=== PATIENT | male | born 1955 | race Caucasian/White ===

== ENCOUNTER 2019-01-19 15:11 | Emergency (ER) | payer OTHER ==
[~2019-01-19] VITALS: Ht 185.4 cm; Wt 99.8 kg
[~2019-01-19 15:11] MED LIST: AMLO10TA PO; ASPI81EC97 PO; LISI30TA6 PO; METF1000 PO; NOV7030 SUBQ; OMEP40EC1 PO; SIMV20TA1 PO
--- NOTE | 2019-01-19 15:25 | NUR ---
Patient to bed 12. RN evaluating patient at bedside.
[2019-01-19 15:34] VITALS: BP 128/59
--- NOTE | 2019-01-19 15:35 | NUR ---
PT C/O OF DIARRHEA X 3 DYAS, PAIN AT LOWEER ABDOMEN . STATES TO HAVE PAIN WHILE PEEING. HX OF DM AND HTN. PT STATES TO HAVE BEING NON-COMPLIANCE WITYH HIS DIABETIC MEDS. PT DRINKING PEDILYTE, HELPING HIM. WILL CONTTINUE TO MONITOR PT.
--- NOTE | 2019-01-19 15:52 | NUR ---
BS 219 AT THIS TIME.
[2019-01-19] MEDS ORDERED: NACL 0.9% 500 ML IV ONE (16:00)
[2019-01-19 16:39] LABS: BASOPHILS % (AUTO) 0.2 % (0.0-2.0); EOSINOPHILS % (AUTO) 0.1 % (0.0-4.0); HEMATOCRIT 35.5 % (36-52); LYMPHOCYTES # (AUTO) 1.7 K/uL (2.0-11.5); LYMPHOCYTES % (AUTO) 12.4 % (20.5-51.1); MEAN CORPUSCULAR HEMOGLOBIN 30 pg (27-31); MEAN CORPUSCULAR HGB CONC 34 g/dL (33-37); MEAN CORPUSCULAR VOLUME 87.8 fL (80-94); MONOCYTES % (AUTO) 7.1 % (1.7-9.3); NEUTROPHILS # (AUTO) 10.8 K/uL (1.8-7.7); NEUTROPHILS % (AUTO) 80.2 % (42.2-75.2); PLATELET COUNT (AUTO) 250 K/uL (140-450); RED BLOOD CELL COUNT(AUTO) 4.04 MIL/uL (4.20-6.10); RED CELL DISTRIBUTION WIDTH 13.6 % (11.6-13.7); WHITE BLOOD COUNT (AUTO) 13.4 K/uL (4.8-10.8)
[2019-01-19 16:44] LABS: ANION GAP 10.6 (8-16); CARBON DIOXIDE 26.7 mmol/L (21-32); CREATININE 1.1 mg/dL (0.7-1.3); POTASSIUM 3.3 mmol/L (3.5-5.1)
[2019-01-19 16:50] LABS: ALBUMIN 2.8 g/dL (3.4-5.0); TOTAL BILIRUBIN 0.7 mg/dL (0.0-1.0)
--- NOTE | 2019-01-19 17:25 | NUR ---
Patient discharged with v/s stable. Written and verbal after care instructions given and explained. Patient alert, oriented and verbalized understanding of instructions. Ambulatory with steady gait. All questions addressed prior to discharge. ID band removed. Patient advised to follow up with PMD. Rx of IMODIUM given. Patient educated on indication of medication including possible reaction and side effects. Opportunity to ask questions provided and answered.
[2019-01-19 17:29] VITALS: BP 128/59
== END 2019-01-19 17:25 | disposition home or self-care (01) ==
LOC: MED 15:11
DX: R19.7 Diarrhea, unspecified (principal); E11.9 Type 2 diabetes mellitus without complications; K21.9 Gastro-esophageal reflux disease without esophagitis; I10 Essential (primary) hypertension; Z79.4 Long term (current) use of insulin; Z79.82 Long term (current) use of aspirin; Z79.899 Other long term (current) drug therapy
CPT/HCPCS: 36415; 74022; 80053; 82948; 85025; 96360; 99284; J7030

== ENCOUNTER 2019-01-22 19:11 | Emergency (ER) | payer OTHER ==
[~2019-01-22] VITALS: Ht 185.4 cm; Wt 99.8 kg
[2019-01-22 19:24] VITALS: BP 127/67
--- NOTE | 2019-01-22 19:30 | NUR ---
PT AMBULATORY TO BED
--- NOTE | 2019-01-22 19:50 | NUR ---
PT PRESENTS TO THE ED WITH C/O INTERMITTENT DIZZYNES, NUMBNESS OF THE TONGUE AND BLURRY VISION. PER PATIENT HIS BLOOD SUGAR PRIOR TO COMMING TO THE ED WAS 60. PT REPORTS DRINKING JUICES. BLOOD SUGAR RECHECKED IN ER TRIAGE, 151. PT AOX4. NO S/S OF DISTRESS. VSS WITHIN NORMAL LIMITS. BED LOWERED WITH SIDE RAILS UP
[2019-01-22 20:37] VITALS: BP 135/68
== END 2019-01-22 20:32 | disposition home or self-care (01) ==
LOC: MED 19:11
DX: E11.649 Type 2 diabetes mellitus with hypoglycemia without coma (principal); K21.9 Gastro-esophageal reflux disease without esophagitis; I10 Essential (primary) hypertension; Z79.4 Long term (current) use of insulin; Z79.82 Long term (current) use of aspirin; Z79.899 Other long term (current) drug therapy
CPT/HCPCS: 82948; 99283

== ENCOUNTER 2019-08-04 00:22 | Emergency (ER) | payer OTHER ==
[~2019-08-04] VITALS: Ht 185.4 cm; Wt 99.8 kg
[~2019-08-04 00:22] MED LIST changes: -OMEP40EC1 PO; +OMEP40EC24 PO
[2019-08-04 00:23] VITALS: BP 190/76
--- NOTE | 2019-08-04 00:23 | NUR ---
TO BED # 02 AMBULATORY
--- NOTE | 2019-08-04 00:35 | NUR ---
63 YO M BIB SELF WITH [facility] PRESENTS TO ED AND REPORTS FLU S/SX AND NON PRODUCTIVE COUGH X 1 WEEK. REPORTS NASAL CONGESTION AND DIFFICULTY SWALLOWING. PT STATES "I CAN'T BREATHE THROUGH MY NOSE". DENIES FEVER, NVD. PT REPORTS PLEURITIC STOMACH PAIN AND BACK PAIN WHILE COUGHING. PMH-- DM, HTN RX-- METFORMIN, AMLODIPINE, SIMVASTATIN, LISINOPRIL, FUROSEMIDE
--- NOTE | 2019-08-04 01:21 | NUR ---
DR. MARY AVILEZ AT BEDSIDE.
--- NOTE | 2019-08-04 01:48 | NUR ---
Patient discharged with v/s stable. Written and verbal after care instructions given and explained. Patient alert, oriented and verbalized understanding of instructions. Ambulatory with steady gait. All questions addressed prior to discharge. ID band removed. Patient advised to follow up with PMD. Rx of Tamiflu, Motrin and Promethazine cough syrup given. Patient educated on indication of medication including possible reaction and side effects. Opportunity to ask questions provided and answered.
[2019-08-04 01:55] VITALS: BP 190/76
== END 2019-08-04 01:55 | disposition home or self-care (01) ==
LOC: MED 00:22
DX: J10.1 Influenza due to other identified influenza virus with other respiratory manifestations (principal); E11.9 Type 2 diabetes mellitus without complications; K21.9 Gastro-esophageal reflux disease without esophagitis; I10 Essential (primary) hypertension; Z79.4 Long term (current) use of insulin; Z79.899 Other long term (current) drug therapy
CPT/HCPCS: 87804; 99283

== ENCOUNTER 2019-08-12 17:21 | Emergency (ER) | payer OTHER, MEDICAID ==
[~2019-08-12] VITALS: Ht 185.4 cm; Wt 99.8 kg
[2019-08-12 17:43] VITALS: BP 121/58
--- NOTE | 2019-08-12 18:02 | NUR ---
63 Y/O C/C COUGH MORE THAN 15 DAYS. PER PT HAS COME TO HOSPITAL FOR CHECK UP AND MEDICATION GIVEN. PT FINISHED MEDICATION AND CONTINUES WITH COUGH. PT NKA. HX DM,HTN. RX INSULIN,METFORMIN,LISINOPRIL,AMLODOPINE. DENIES N/V/D. PT TAKEN FLU SHOT/FAMILY SICK AT HOME. PT SITTING IN CHAIR C.
--- NOTE | 2019-08-12 18:10 | NUR ---
FLU SWAP COLLECTED
[2019-08-12 19:14] VITALS: BP 120/60
--- NOTE | 2019-08-12 19:14 | NUR ---
Patient discharged with v/s stable. Written and verbal after care instructions given and explained. Patient alert, oriented and verbalized understanding of instructions. Ambulatory with steady gait. All questions addressed prior to discharge. ID band removed. Patient advised to follow up with PMD. Rx of PREDNISONE,MOTRIN given. Patient educated on indication of medication including possible reaction and side effects. Opportunity to ask questions provided and answered.
== END 2019-08-12 19:14 | disposition home or self-care (01) ==
LOC: MED 17:21
DX: R05 Cough (principal); E11.9 Type 2 diabetes mellitus without complications; K21.9 Gastro-esophageal reflux disease without esophagitis; I10 Essential (primary) hypertension; Z79.899 Other long term (current) drug therapy; Z79.4 Long term (current) use of insulin
CPT/HCPCS: 71045; 99283

== ENCOUNTER 2020-01-15 18:58 | Emergency (ER) | payer OTHER, MEDICAID ==
[~2020-01-15] VITALS: Ht 182.9 cm; Wt 107.0 kg
[2020-01-15 19:02] VITALS: BP 162/72
--- NOTE | 2020-01-15 19:06 | NUR ---
PT AMBULATED TO LOBBY WITH STEADY GAIT
--- NOTE | 2020-01-15 19:21 | NUR ---
PT TAKEN TO XRAY VIA W/C.
--- NOTE | 2020-01-15 19:34 | NUR ---
PT RETURNED FROM XRAY AND TAKEN TO BED 4. PT AMBULATED TO BED WITH STEADY GAIT.
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
[2020-01-15] MEDS ORDERED: KETOROLAC 60 MG/2 ML VIAL IM ONE (20:25)
--- NOTE | 2020-01-15 20:55 | NUR ---
PATIENT SEEN AND ASSESS FOR INCENTIVE SPIROMETRY. PREDICTED VOLUME 2800ml AND PATIENT COMPLETED INSPIRED AVERAGE VOLUME OF 2500ml OUT OF 10 BREATHS. EDUCATION GIVEN TO PATIENT ON HOW TO USE INCENTIVE SPIROMETRY.
[2020-01-15 21:20] VITALS: BP 162/72
--- NOTE | 2020-01-15 21:20 | NUR ---
Patient discharged with v/s stable. Written and verbal after care instructions given and explained. Patient alert, oriented and verbalized understanding of instructions. Ambulatory with steady gait. All questions addressed prior to discharge. ID band removed. Patient advised to follow up with PMD. Rx of NORCO, MOTRIN given. Patient educated on indication of medication including possible reaction and side effects. Opportunity to ask questions provided and answered.
== END 2020-01-15 21:20 | disposition home or self-care (01) ==
LOC: MED 18:58
DX: S22.31XA Fracture of one rib, right side, initial encounter for closed fracture (principal); E11.8 Type 2 diabetes mellitus with unspecified complications; E78.5 Hyperlipidemia, unspecified; I10 Essential (primary) hypertension; I51.89 Other ill-defined heart diseases; K21.9 Gastro-esophageal reflux disease without esophagitis; Z79.899 Other long term (current) drug therapy; X58.XXXA Exposure to other specified factors, initial encounter; Y93.89 Activity, other specified; Y92.89 Other specified places as the place of occurrence of the external cause; Y99.8 Other external cause status
CPT/HCPCS: 71101; 96372; 99283; J1885

== ENCOUNTER 2021-10-09 12:31 | Emergency (ER) | payer OTHER, MEDICAID ==
[~2021-10-09] VITALS: Ht 177.8 cm; Wt 110.7 kg
[2021-10-09 12:34] VITALS: BP 153/76
[2021-10-09] MEDS ORDERED: HYDROcodone/APAP 5/325 MG 1 TAB TAB PO ONE (13:00)
--- NOTE | 2021-10-09 13:05 | NUR ---
AT PT BEDSIDE
--- NOTE | 2021-10-09 13:17 | NUR ---
PT. AMBULATED TO XR
[2021-10-09] MEDS ORDERED: NACL 0.9% 1,000 ML IV SCH (13:25)
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
--- NOTE | 2021-10-09 13:41 | NUR ---
PT REFUSING AN IV AND LAB WORK AT THIS TIME. PT IS ONLY ACCEPTING PAIN MEDICATIONS. GAYLE MOULTON MADE AWARE
[2021-10-09] MEDS ORDERED: ACET-8386 PO (14:03)
[2021-10-09] MEDS ORDERED: IBUP-2213 PO (14:03)
[2021-10-09 14:22] VITALS: BP 153/76
--- NOTE | 2021-10-09 14:28 | NUR ---
Patient discharged with v/s stable. Written and verbal after care instructions given and explained. Patient alert, oriented and verbalized understanding of instructions. Ambulatory with steady gait. All questions addressed prior to discharge. ID band removed. Patient advised to follow up with PMD. Rx of HYDROCODONE/ACETAMINOPHEN 5-325, IBUPROFEN were given to patient. Patient educated on indication of medication including possible reaction and side effects. Opportunity to ask questions provided and answered.
== END 2021-10-09 14:22 | disposition home or self-care (01) ==
LOC: MED 12:31
DX: S30.0XXA Contusion of lower back and pelvis, initial encounter (principal); R07.81 Pleurodynia; E11.9 Type 2 diabetes mellitus without complications; I10 Essential (primary) hypertension; K21.9 Gastro-esophageal reflux disease without esophagitis; Z79.84 Long term (current) use of oral hypoglycemic drugs; Z79.82 Long term (current) use of aspirin; Z79.899 Other long term (current) drug therapy; W18.2XXA Fall in (into) shower or empty bathtub, initial encounter; Y93.89 Activity, other specified; Y92.89 Other specified places as the place of occurrence of the external cause; Y99.8 Other external cause status
CPT/HCPCS: 71101; 72100; 82948; 99284

== ENCOUNTER 2022-04-25 19:37 | Emergency (ER) | payer OTHER, MEDICAID ==
[~2022-04-25] VITALS: Ht 185.4 cm; Wt 104.3 kg
[~2022-04-25 19:37] MED LIST changes: +ACET-8386 PO; +IBUP-2213 PO; +METF-1274 PO; -METF1000 PO; +SIMV-372 PO; -SIMV20TA1 PO
[2022-04-25 20:01] VITALS: BP 140/74
--- NOTE | 2022-04-25 20:07 | NUR ---
TO LOBBY FOLLOWING TRIAGE
[2022-04-25] MEDS ORDERED: ACETAMINOPHEN EXTRA STRENGTH 500 MG TAB PO ONE (22:35)
[2022-04-25] MEDS ORDERED: ONDANSETRON 4 MG ODT PO ONE (22:35)
[2022-04-25 23:02] LABS: BASOPHILS % (AUTO) 0.3 % (0.0-2.0); EOSINOPHILS # (AUTO) 0.3 K/uL (0-0.4); EOSINOPHILS % (AUTO) 2.2 % (0.0-4.0); HEMOGLOBIN 11.6 g/dL (12.0-18.0); LYMPHOCYTES # (AUTO) 1.9 K/uL (2.0-11.5); LYMPHOCYTES % (AUTO) 14.5 % (20.5-51.1); MEAN CORPUSCULAR HEMOGLOBIN 30 pg (27-31); MEAN CORPUSCULAR HGB CONC 33 g/dL (33-37); MEAN CORPUSCULAR VOLUME 91.7 fL (80-94); MONOCYTES # (AUTO) 0.8 K/uL (0.8-1.0); MONOCYTES % (AUTO) 5.9 % (1.7-9.3); NEUTROPHILS % (AUTO) 77.1 % (42.2-75.2); PLATELET COUNT (AUTO) 240 K/uL (140-450); RED BLOOD CELL COUNT(AUTO) 3.81 MIL/uL (4.20-6.10); RED CELL DISTRIBUTION WIDTH 14.1 % (11.6-13.7)
[2022-04-25 23:28] LABS: ANION GAP 13.1 (8-16); CARBON DIOXIDE 29.4 mmol/L (21-32); CREATININE 0.9 mg/dL (0.6-1.3); POTASSIUM 3.5 mmol/L (3.5-5.1); TOTAL BILIRUBIN 0.7 mg/dL (0.0-1.0)
[2022-04-26] MEDS ORDERED: ONDANSETRON 4 MG TAB ONE (00:32)
[2022-04-26] MEDS ORDERED: ACETAMINOPHEN EXTRA STRENGTH 500 MG TAB ONE (00:32)
[2022-04-26 02:15] LABS: APPEARANCE,URINE CLEAR (CLEAR); BILIRUBIN,URINE NEGATIVE (NEGATIVE); BLOOD, URINE NEGATIVE (NEGATIVE); COLOR,URINE YELLOW (YELLOW); LEUKOCYTE ESTERASE ,URINE NEGATIVE (NEGATIVE); NITRITE, URINE NEGATIVE (NEGATIVE); UGLUCOSE NEGATIVE (NEGATIVE)
[2022-04-26] MEDS ORDERED: PIPERACILLIN/TAZOBACTAM 3.375 GM in DEXTROSE 5% 50 ML IV ONE (03:55)
[2022-04-26] MEDS ORDERED: ONDANSETRON 4 MG/2 ML VIAL IVP ONE (03:55)
[2022-04-26] MEDS ORDERED: NACL 0.9% 2,000 ML IV ONE (03:55)
[2022-04-26] MEDS ORDERED: MORPHINE SULFATE 2 MG/ML SYR IVP ONE (03:55)
[2022-04-26] MEDS ORDERED: PIPERACILLIN/TAZOBACTAM 3.375 GM VIAL IV ONE (06:47)
[2022-04-26] MEDS ORDERED: AMOX-999 PO (09:20)
[2022-04-26] MEDS ORDERED: ACET-8386 PO (09:20)
--- NOTE | 2022-04-26 09:20 | NUR ---
REFER BACK TO PAPER CHART FOR INTERVENTIONS
--- NOTE | 2022-04-26 09:29 | NUR ---
ct called x2 ,no answer
--- NOTE | 2022-04-26 09:50 | NUR ---
IV removed, catheter intact and site benign. Applied folded 4x4 gauze and tape to stop bleeding.
[2022-04-26 09:55] VITALS: BP 150/80
--- NOTE | 2022-04-26 09:55 | NUR ---
Patient discharged with v/s stable. Written and verbal after care instructions FOR DIVERTICULITIS given and explained. Patient alert, oriented and verbalized understanding of instructions. Ambulatory with steady gait. All questions addressed prior to discharge. ID band removed. Patient advised to follow up with PMD. Rx of HYDROCODONE/ACETAMINOPHEN AND AMOXICILLIN/POTASSIUM CLAV given. Opportunity to ask questions provided and answered.
== END 2022-04-26 09:55 | disposition home or self-care (01) ==
LOC: MED 19:37
DX: K57.32 Diverticulitis of large intestine without perforation or abscess without bleeding (principal)
CPT/HCPCS: 36415; 74176; 80053; 81003; 83605; 85025; 96374; 99284; J2543; Q0162

== ENCOUNTER 2022-07-31 20:28 | Emergency (ER) | payer OTHER, MEDICAID ==
[~2022-07-31] VITALS: Ht 185.4 cm; Wt 104.3 kg
[~2022-07-31 20:28] MED LIST changes: -ACET-8386 PO; +ACET-8905 PO; +AMOX-999 PO
[2022-07-31 20:30] VITALS: BP 139/70
--- NOTE | 2022-07-31 20:33 | NUR ---
[facility] A/W BED AMBULATORY
--- NOTE | 2022-07-31 22:13 | NUR ---
PT AMBULATED TO BED #9
--- NOTE | 2022-07-31 22:30 | NUR ---
C/O ABSCESS ON HIS BACK FOR 3 WEEKS. REDDENED RAISED AREA WITH BLACK CENTER NOTED TO MID BACK
[2022-07-31] MEDS ORDERED: CEPH-588 PO (23:46)
[2022-07-31] MEDS ORDERED: NAPR-54 PO (23:46)
[2022-07-31 23:55] VITALS: BP 139/70
--- NOTE | 2022-07-31 23:55 | NUR ---
Patient discharged with v/s stable. Written and verbal after care instructions given and explained. Patient alert, oriented and verbalized understanding of instructions. Ambulatory with steady gait. All questions addressed prior to discharge. ID band removed. Patient advised to follow up with PMD. Rx of NAPROSYN, KEFLEX given. Patient educated on indication of medication including possible reaction and side effects. Opportunity to ask questions provided and answered.
== END 2022-07-31 23:55 | disposition home or self-care (01) ==
LOC: MED 20:28
DX: L02.212 Cutaneous abscess of back [any part, except buttock and flank] (principal); E11.9 Type 2 diabetes mellitus without complications; K21.9 Gastro-esophageal reflux disease without esophagitis; I10 Essential (primary) hypertension; Z79.82 Long term (current) use of aspirin; Z79.4 Long term (current) use of insulin; Z79.899 Other long term (current) drug therapy; Z98.890 Other specified postprocedural states
CPT/HCPCS: 99283

== ENCOUNTER 2022-10-13 14:24 | Emergency (ER) | payer OTHER ==
[~2022-10-13] VITALS: Ht 185.4 cm; Wt 103.6 kg
[~2022-10-13 14:24] MED LIST changes: +CEPH-588 PO; +NAPR-54 PO
[2022-10-13 14:32] VITALS: BP 152/82
--- NOTE | 2022-10-13 15:25 | NUR ---
COVID, FLU SWAB DONE.
[2022-10-13] MEDS ORDERED: ACET-2619 PO (16:54)
[2022-10-13] MEDS ORDERED: AMOX-1230 PO (16:54)
[2022-10-13] MEDS ORDERED: DEXT118S25 PO (16:54)
--- NOTE | 2022-10-13 17:08 | NUR ---
Patient discharged with v/s stable. Written and verbal after care instructions ABOUT ACUTE BRONCHITIS given and explained. Patient alert, oriented and verbalized understanding of instructions. Ambulatory with steady gait. All questions addressed prior to discharge. ID band removed. Patient advised to follow up with PMD. Rx of AMOX-CLAV 875-125, DIABETUC TUSSIN, TYLENOL given. Patient educated on indication of medication including possible reaction and side effects. Opportunity to ask questions provided and answered.
== END 2022-10-13 17:08 | disposition home or self-care (01) ==
LOC: MED 14:24
DX: J20.9 Acute bronchitis, unspecified (principal); Z20.822 Contact with and (suspected) exposure to COVID-19; R05.9 Cough, unspecified; I10 Essential (primary) hypertension; E11.9 Type 2 diabetes mellitus without complications; K21.9 Gastro-esophageal reflux disease without esophagitis; Z79.899 Other long term (current) drug therapy; Z79.84 Long term (current) use of oral hypoglycemic drugs; Z79.82 Long term (current) use of aspirin; Z98.890 Other specified postprocedural states
CPT/HCPCS: 71045; 93005; 99285

== ENCOUNTER 2023-08-21 20:43 | Emergency (ER) | payer OTHER, MEDICAID ==
[~2023-08-21] VITALS: Ht 185.4 cm; Wt 106.6 kg
[~2023-08-21 20:43] MED LIST changes: +ACET-2619 PO; +AMOX-1230 PO; +DEXT118S25 PO
[2023-08-21 21:27] VITALS: BP 144/82; PULSE 84; RESP 18; TEMP 98.1; O2SAT 98
[2023-08-21 23:12] LABS: FLU A ANTIGEN negative (NEGATIVE); FLU B ANTIGEN NEGATIVE (NEGATIVE)
== END 2023-08-21 22:15 | disposition home or self-care (01) ==
LOC: MED 20:43
DX: U07.1 COVID-19 (principal); E11.9 Type 2 diabetes mellitus without complications; K21.9 Gastro-esophageal reflux disease without esophagitis; I10 Essential (primary) hypertension; Z79.899 Other long term (current) drug therapy; Z79.1 Long term (current) use of non-steroidal anti-inflammatories (NSAID); Z79.4 Long term (current) use of insulin; Z79.2 Long term (current) use of antibiotics
CPT/HCPCS: 99283